=== PATIENT | female | born 1960 | race Caucasian/White ===

== ENCOUNTER 2016-06-25 05:01 | Emergency (ER) | payer OTHER ==
[2016-06-25] MEDS ORDERED: KETOROLAC 30 MG/ML 1 ML VIAL IVP STA ×2 (05:31→06:56)
[2016-06-25] MEDS ORDERED: SODIUM CHLORIDE 0.9% 1,000 ML IV STA (05:31)
[2016-06-25] MEDS ORDERED: HYDROmorphone 1 MG/ML 1 ML SYRINGE IVP STA (05:31)
[2016-06-25] MEDS ORDERED: LORazepam 2 MG/ML SYRINGE IV STA (05:31)
--- NOTE | 2016-06-25 05:37 | ED ---
General Adult HPI - General Chief complaint: Extremity Injury, Upper Stated complaint: right shoulder pain, numbness Time Seen by Provider: 06/25/16 05:20 Source: patient, family, RN notes reviewed Mode of arrival: ambulatory Limitations: no limitations - History of Present Illness Initial comments: This is a 56-year-old female who presents with complaints of right upper extremity pain and back pain. She states she's had this pain for about a month she's been going through physical therapy and did in fact have a session yesterday. She complains of severe 10/10 pain between her right shoulder blade and back when down her right arm. She states her hurts to move her right arm. She denies any new injury other than perhaps the physical therapy. She does take tramadol this is not helped the pain. - Related Data Home Medications Medication Instructions Recorded Confirmed Lisinopril [Prinivil] 10 mg PO DAILY 06/25/16 06/25/16 Previous Rx's Medication Instructions Recorded Ibuprofen [Motrin] 800 mg PO Q6HR PRN #20 tab 06/25/16 Orphenadrine [Norflex] 100 mg PO Q12H #7 tablet.er 06/25/16 Allergies Allergy/AdvReac Type Severity Reaction Status Date / Time No Known Allergies Allergy Verified 06/25/16 05:12 Review of Systems ROS Statement: Those systems with pertinent positive or pertinent negative responses have been documented in the HPI. ROS Other: All systems not noted in ROS Statement are negative. Past Medical History Past Medical History: Hypertension History of Any Multi-Drug Resistant Organisms: None Reported Past Surgical History: Cholecystectomy Additional Past Surgical History / Comment(s): colonoscopy Past Psychological History: No Psychological Hx Reported Smoking Status: Former smoker Past Alcohol Use History: None Reported Past Drug Use History: None Reported General Exam - General Exam Comments Initial Comments: This is a well-developed well-nourished awake alert oriented history female she is tearful Limitations: no limitations General appearance: alert, anxious, in distress Head exam: Present: atraumatic, normocephalic, normal inspection Eye exam: Present: normal appearance, PERRL, EOMI. Absent: scleral icterus, conjunctival injection, periorbital swelling ENT exam: Present: normal exam, mucous membranes moist Neck exam: Present: normal inspection, tenderness, other (Patient does have continues he ALLERGY tape on her right trapezius and right lateral neck. There is tenderness over the right trapezius and neck musculature no spinous process tenderness however. Is no tenderness to the right thoracic musculature no spinous process tenderness.). Absent: full ROM Respiratory exam: Present: normal lung sounds bilaterally. Absent: respiratory distress, wheezes, rales, rhonchi, stridor Cardiovascular Exam: Present: regular rate, normal rhythm, normal heart sounds. Absent: systolic murmur, diastolic murmur, rubs, gallop, clicks Extremities exam: Present: normal capillary refill, other (The right upper extremity is held in adduction. No tenderness palpation of the right shoulder arm elbow forearm or hand radial pulse is 2+. 3 and is somewhat cool to touch is somewhat dusky. This is likely due to the position she has been holding it in.) Back exam: Present: normal inspection, tenderness (Penicillin the paraspinous muscles on the right right trapezius muscle. No spinous process tenderness) Neurological exam: Present: alert, oriented X3 Skin exam: Present: dry Course Vital Signs 06/25/16 05:08 Temperature 97.6 F Pulse Rate 92 Respiratory 20 Rate Blood Pressure 162/71 O2 Sat by Pulse 100 Oximetry Medical Decision Making - Medical Decision Making The patient is so much improved this time I did a long discussion with her and her regarding the findings. The presentation consistent with cervical radiculopathy and muscle spasm. She also was dehydrated I did recommend increasing oral fluids. She is a followed back up with her orthopedist and return when necessary - Lab Data Result diagrams: 06/25/16 05:50 Lab Results 06/25/16 Range/Units 05:50 Sodium 144 (137-145) mmol/L Potassium 4.3 (3.5-5.1) mmol/L Chloride 105 (98-107) mmol/L Carbon Dioxide 26 (22-30) mmol/L Anion Gap 13 mmol/L BUN 30 H (7-17) mg/dL Creatinine 0.80 (0.52-1.04) mg/dL Est GFR (MDRD) Af Amer >60 (>60 ml/min/1.73 sqM) Est GFR (MDRD) Non-Af >60 (>60 ml/min/1.73 sqM) Glucose 111 H (74-99) mg/dL Calcium 10.3 H (8.4-10.2) mg/dL Magnesium 2.1 (1.6-2.3) mg/dL Total Bilirubin 0.7 (0.2-1.3) mg/dL AST 25 (14-36) U/L ALT 39 (9-52) U/L Alkaline Phosphatase 113 (38-126) U/L Total Protein 8.6 H (6.3-8.2) g/dL Albumin 4.8 (3.5-5.0) g/dL Disposition Clinical Impression: Cervical radiculopathy, Dehydration Disposition: HOME SELF-CARE Condition: Good Instructions: Cervical Radiculopathy (ED), Neck Pain (ED), Dehydration (ED) Prescriptions: Ibuprofen [Motrin] 800 mg PO Q6HR PRN #20 tab PRN Reason: Pain Orphenadrine [Norflex] 100 mg PO Q12H #7 tablet.er
[2016-06-25 06:11] LABS: ALT 39 U/L (9-52); AST 25 U/L (14-36); Alkaline Phosphatase 113 U/L (38-126); Anion Gap 13 mmol/L; Blood Urea Nitrogen 30 mg/dL (7-17); Calcium 10.3 mg/dL (8.4-10.2); Carbon Dioxide 26 mmol/L (22-30); Chloride 105 mmol/L (98-107); Glucose 111 mg/dL (74-99); Magnesium 2.1 mg/dL (1.6-2.3); Non-African American GFR(MDRD) >60 (>60 ml/min/1.73 sqM); Potassium 4.3 mmol/L (3.5-5.1); Sodium 144 mmol/L (137-145); Total Bilirubin 0.7 mg/dL (0.2-1.3); Total Protein 8.6 g/dL (6.3-8.2)
[2016-06-25 07:41] VITALS: BP 115/62; PULSE 64; RESP 14; TEMP 97.2
== END 2016-06-25 07:49 | disposition home or self-care (01) ==
LOC: EC 05:01
DX: M54.12 Radiculopathy, cervical region (principal); E86.0 Dehydration; M62.838 Other muscle spasm; I10 Essential (primary) hypertension; Z79.899 Other long term (current) drug therapy; Z87.891 Personal history of nicotine dependence
CPT/HCPCS: 36415; 80053; 83735; 99283; 96374; 96375 ×2; 96376; 96361 ×2; J2060; J1885; J1170

== ENCOUNTER → 2017-05-11 | Outpatient (CLI) | payer OTHER ==
--- NOTE | 2017-05-13 08:28 | MM ---
Reason for exam: screening (asymptomatic). Last mammogram was performed 1 year and 1 month ago. History: Patient is postmenopausal and has history of other cancer at age 51. Physical Findings: A clinical breast exam by your physician is recommended on an annual basis and results should be correlated with mammographic findings. MG 3D Screening Mammo W/Cad Bilateral CC and MLO view(s) were taken. Prior study comparison: April 23, 2016, bilateral MG 3d screening mammo w/cad. April 22, 2015, bilateral MG 3d screening mammo w/cad. April 15, 2014, bilateral MG screening mammo w CAD. There are scattered fibroglandular densities. Stable focal asymmetries on the right breast. ASSESSMENT: Negative, BI-RAD 1 RECOMMENDATION: Routine screening mammogram of both breasts in 1 year.
== END | disposition home or self-care (01) ==
LOC: RADMAMWWP 16:37
PROVIDERS: ATTEND Family Medicine
DX: Z12.31 Encounter for screening mammogram for malignant neoplasm of breast (principal)
CPT/HCPCS: 77063; 77067

== ENCOUNTER → 2018-05-27 | Outpatient (CLI) | payer OTHER ==
[2018-05-27 08:59] LABS: HCT 39.5 % (34.0-46.0); HGB 12.3 gm/dL (11.4-16.0); MCH 28.8 pg (25.0-35.0); MCHC 31.1 g/dL (31.0-37.0); MCV 92.7 fL (80.0-100.0); Mean Platelet Volume 7.9; Platelet Count 256 k/uL (150-450); RBC 4.26 m/uL (3.80-5.40); RDW 13.5 % (11.5-15.5); WBC 8.4 k/uL (3.8-10.6)
[2018-05-27 09:15] LABS: Amorphous Sediment,Urine Rare /hpf; Appearance,Urine Cloudy (Clear); Bacteria,Urine Rare /hpf; Bilirubin,Urine Negative (Negative); Blood,Urine Negative (Negative); Color,Urine Yellow; Glucose,Urine (UA) Negative (Negative); Ketones,Urine Negative (Negative); Leukocyte Esterase,Urine Negative (Negative); Mucus,Urine Rare /hpf; Nitrite,Urine Negative (Negative); Protein,Urine Negative (Negative); RBC,Urine <1 /hpf (0-5); Specific Gravity,Urine 1.021 (1.001-1.035); Squamous Epithelial Cell,Urine 3 /hpf (0-4); Urobilinogen,Urine <2.0 mg/dL (<2.0); WBC,Urine 2 /hpf (0-5)
[2018-05-27 16:28] LABS: Albumin 4.1 g/dL (3.80-4.90); Albumin/Globulin Ratio 1.71 (1.60-3.17); Anion Gap 8.8 mmol/L (4.00-12.00); Carbon Dioxide 29.2 mmol/L (21.6-31.8); Globulin 2.4 g/dL (1.6-3.3); LDL Cholesterol,Calculated 137.2 mg/dL (0.0-131.0); Potassium 4.5 mmol/L (3.5-5.5); Total Bilirubin 0.4 mg/dL (0.2-1.2); Total Protein 6.5 g/dL (6.2-8.2); VLDL Calculation 18.8 mg/dL (5.00-40.00)
[2018-05-27 17:09] LABS: T4, Free (Free Thyroxine) 0.9 ng/dL (0.80-1.80)
[2018-05-27 18:39] LABS: Hemoglobin A1C 5.5 % (4.0-6.0)
== END | disposition home or self-care (01) ==
LOC: LABWHC1 08:33
PROVIDERS: ATTEND Family Medicine
DX: Z00.00 Encounter for general adult medical examination without abnormal findings (principal); I10 Essential (primary) hypertension; E78.5 Hyperlipidemia, unspecified; E73.9 Lactose intolerance, unspecified
CPT/HCPCS: 36415; 80053; 80061; 81001; 83036; 84439; 84443; 85027

== ENCOUNTER → 2018-05-31 | Outpatient (CLI) | payer OTHER ==
--- NOTE | 2018-06-01 01:01 | MR ---
EXAMINATION TYPE: MR knee RT wo con DATE OF EXAM: 05/31/2018 COMPARISON: None HISTORY: Rt knee pain, internal derangement, fall TECHNIQUE: Multiplanar, multisequence imaging of the right knee is performed without IV contrast. FINDINGS: The anterior and posterior cruciate ligaments are intact. There is small knee joint effusion. The med ial meniscus is intact. Lateral meniscus is intact. I see no bony destructive process. There is no ev idence of a fracture. The collateral ligaments are intact. There is no evidence of bony destructive p rocess. IMPRESSION: Mild knee joint effusion. No evidence of ligamentous or meniscal tear. Minimal subcutaneous edema over the anterior knee.
== END | disposition home or self-care (01) ==
LOC: RADMRIMAIN 18:38
PROVIDERS: ATTEND Family Medicine
DX: M25.461 Effusion, right knee (principal); R60.0 Localized edema

== ENCOUNTER → 2018-06-22 | Outpatient (CLI) | payer OTHER ==
--- NOTE | 2018-06-23 10:44 | BD ---
EXAMINATION TYPE: Axial Bone Density DATE OF EXAM: 06/22/2018 COMPARISON: NONE CLINICAL HISTORY: 58 YR OLD FEMALE.....ICD-10 CODE: N95.1 POST MENOPAUSAL Height: 63.4 Weight: 217 FRAX RISK QUESTIONS: NOTHING TO NOTE HERE RISK FACTORS HISTORY OF: Active: YES Postmenopausal woman: YES AT AGE 54 YRS MEDICATIONS: Additional Medications: BP MEDS, VIT D, MULTIVITAMIN Additional History: HYPERTENSION EXAM MEASUREMENTS: Bone mineral densitometry was performed using the [employer] System. Bone mineral density as measured about the Lumbar spine is: ----- L1-L4(G/cm2): 1.394 T Score Values are as follows: ----- L1: 1.2 ----- L2: 1.9 ----- L3: 2.5 ----- L4: 1.6 ----- L1-L4: 1.8 Bone mineral density FIRST BONE DENSITY SCAN.....BASELINE STUDY Bone mineral density about the R hip (g/cm2): 1.027 Bone mineral density about the L hip (g/cm2): 1.199 T Score values are as follows: -----R Neck: -0.9 -----L Neck: 0.2 -----R Total: 0.2 -----L Total: 1.5 Bone mineral density BASELINE STUDY FRAX%s: THERE IS A 6.2% CHANCE FOR A MAJOR OSTEOPOROTIC FX AND A 0.3% FOR HIP FX....PROBABILITY OF FX IN 10 YRS TIME IMPRESSION: Normal (Values between +1 and -1 indicate normal bone mass). Consider repeating this study in 5 year s or sooner if there is some new clinical indication. NOTE: T-SCORE=SD OF THE YOUNG ADULT MEAN.
--- NOTE | 2018-06-26 08:16 | MM ---
Reason for exam: screening (asymptomatic). Last mammogram was performed 1 year and 1 month ago. History: Patient is postmenopausal and has history of other cancer at age 51. Physical Findings: A clinical breast exam by your physician is recommended on an annual basis and results should be correlated with mammographic findings. MG 3D Screening Mammo W/Cad Bilateral CC and MLO view(s) were taken. Prior study comparison: May 11, 2017, bilateral MG 3d screening mammo w/cad. April 23, 2016, bilateral MG 3d screening mammo w/cad. There are scattered fibroglandular densities. No significant changes when compared with prior studies. ASSESSMENT: Benign, BI-RAD 2 RECOMMENDATION: Routine screening mammogram of both breasts in 1 year.
== END ==
LOC: RADMAMWWP 13:46
PROVIDERS: ATTEND Family Medicine
DX: Z12.31 Encounter for screening mammogram for malignant neoplasm of breast (principal); N95.1 Menopausal and female climacteric states
CPT/HCPCS: 77063; 77067; 77080

== ENCOUNTER → 2018-08-08 | Outpatient (CLI) | payer OTHER ==
--- NOTE | 2018-08-09 07:44 | US ---
EXAMINATION TYPE: US venous doppler duplex LE RT DATE OF EXAM: 08/08/2018 4:59 PM COMPARISON: NONE CLINICAL HISTORY: I80.9Phlebitis and thrombophlebitis of unspecified. edema SIDE PERFORMED: Right TECHNIQUE: The lower extremity deep venous system is examined utilizing real time linear array sonog santiago with graded compression, doppler sonography and color-flow sonography. VESSELS IMAGED: External Iliac Vein (EIV) Common Femoral Vein Deep Femoral Vein Greater Saphenous Vein * Femoral Vein Popliteal Vein Small Saphenous Vein * Proximal Calf Veins (* superficial vessels) Right Leg: Negative for DVT Grayscale, color doppler, spectral doppler imaging performed of the deep veins of the right lower ext remity. There is normal flow, compressibility, vascular waveforms. IMPRESSION: No evidence for acute DVT in the right lower extremity.
== END ==
LOC: RADUSWWP 16:57
PROVIDERS: ATTEND Physical Medicine & Rehabilitation
DX: M54.5 Low back pain (principal); M79.661 Pain in right lower leg

== ENCOUNTER → 2019-11-01 | Outpatient (CLI) | payer BC ==
--- NOTE | 2019-11-02 09:57 | MM ---
Reason for exam: screening (asymptomatic). Last mammogram was performed 1 year and 4 months ago. History: Patient is postmenopausal and has history of other cancer at age 51. Physical Findings: A clinical breast exam by your physician is recommended on an annual basis and results should be correlated with mammographic findings. MG 3D Screening Mammo W/Cad Bilateral CC and MLO view(s) were taken. Prior study comparison: June 22, 2018, bilateral MG 3d screening mammo w/cad. May 11, 2017, bilateral MG 3d screening mammo w/cad. The breast tissue is heterogeneously dense. This may lower the sensitivity of mammography. Stable asymmetric density right upper outer quadrant unchanged from 2015. ASSESSMENT: Benign, BI-RAD 2 RECOMMENDATION: Routine screening mammogram of both breasts in 1 year.
== END | disposition home or self-care (01) ==
LOC: RADMAMWWP 15:19
PROVIDERS: ATTEND Family Medicine
DX: Z12.31 Encounter for screening mammogram for malignant neoplasm of breast (principal)
CPT/HCPCS: 77063; 77067

== ENCOUNTER → 2021-01-21 | Outpatient (CLI) | payer BC ==
--- NOTE | 2021-01-26 10:14 | MM ---
Reason for exam: screening (asymptomatic). Last mammogram was performed 1 year and 3 months ago. History: Patient is postmenopausal and has history of other cancer at age 51. Physical Findings: A clinical breast exam by your physician is recommended on an annual basis and results should be correlated with mammographic findings. MG 3D Screening Mammo W/Cad Bilateral CC and MLO view(s) were taken. Prior study comparison: November 01, 2019, bilateral MG 3d screening mammo w/cad. June 22, 2018, bilateral MG 3d screening mammo w/cad. May 11, 2017, bilateral MG 3d screening mammo w/cad. There are scattered fibroglandular densities. No significant changes when compared with prior studies. ASSESSMENT: Benign, BI-RAD 2 RECOMMENDATION: Routine screening mammogram of both breasts in 1 year.
== END | disposition home or self-care (01) ==
LOC: RADMAMWWP 15:56
PROVIDERS: ATTEND Family Medicine
DX: Z12.31 Encounter for screening mammogram for malignant neoplasm of breast (principal); Z78.0 Asymptomatic menopausal state
CPT/HCPCS: 77063; 77067

== ENCOUNTER → 2021-02-28 | Outpatient (CLI) | payer BC ==
[2021-02-28 09:22] LABS: Appearance,Urine Clear (Clear); Bilirubin,Urine Negative (Negative); Blood,Urine Negative (Negative); Color,Urine Yellow; Glucose,Urine (UA) Negative (Negative); Ketones,Urine Negative (Negative); Leukocyte Esterase,Urine Trace (Negative); Nitrite,Urine Negative (Negative); PH, Urine 5.5 (5.0-8.0); Protein,Urine Negative (Negative); RBC,Urine 1 /hpf (0-5); Specific Gravity,Urine 1.017 (1.001-1.035); Squamous Epithelial Cell,Urine 1 /hpf (0-4); Urobilinogen,Urine <2.0 mg/dL (<2.0); WBC,Urine 1 /hpf (0-5)
[2021-02-28 11:48] LABS: Basophils # (A) 0.04 X 10*3/uL (0.00-0.10); Basophils % (A) 0.5 %; Eosinophils # (A) 0.35 X 10*3/uL (0.04-0.35); Eosinophils % (A) 4.4 %; HCT 41.6 % (37.2-46.3); HGB 13.5 g/dL (12.0-15.0); Lymphocytes # (A) 2.13 X 10*3/uL (0.90-5.00); Lymphocytes % (A) 26.9 %; MCH 30.7 pg (27.0-32.0); MCHC 32.5 g/dL (32.0-37.0); MCV 94.5 fL (80.0-97.0); Mean Platelet Volume 10.2 fL (9.5-12.2); Monocytes % (A) 5.1 %; Neutrophils # (A) 4.97 X 10*3/uL (1.80-7.70); Neutrophils % (A) 62.7 %; Platelet Count 269 X 10*3/uL (140-440); RDW 13.1 % (11.5-14.5); WBC 7.92 X 10*3/uL (4.50-10.00)
[2021-02-28 13:40] LABS: African American GFR (CKD) 89.5 (60.0-200.0); Albumin 4.5 g/dL (3.8-4.9); Albumin/Globulin Ratio 1.71 (1.60-3.17); Anion Gap 12.4 mmol/L (4.00-12.00); BUN/Creat Ratio 15.85 Ratio (12.00-20.00); Calcium 9.8 mg/dL (8.7-10.3); Carbon Dioxide 26.1 mmol/L (21.6-31.8); Chol/HDL Ratio 4.92 Ratio; Globulin 2.6 g/dL (1.6-3.3); Non-African American GFR(CKD) 77.2 (60.0-200.0); Potassium 4.7 mmol/L (3.5-5.5); Total Bilirubin 0.3 mg/dL (0.30-1.20); Total Protein 7.1 g/dL (6.2-8.2)
== END | disposition home or self-care (01) ==
LOC: LABWHC1 08:22
PROVIDERS: ATTEND Family Medicine
DX: Z00.00 Encounter for general adult medical examination without abnormal findings (principal); E55.9 Vitamin D deficiency, unspecified; I10 Essential (primary) hypertension; R79.9 Abnormal finding of blood chemistry, unspecified; E78.5 Hyperlipidemia, unspecified
CPT/HCPCS: 36415; 80053; 80061; 81001; 82306; 83036; 84439; 84443; 85025

== ENCOUNTER → 2021-05-30 | Outpatient (CLI) | payer OTHER ==
--- NOTE | 2021-05-30 10:21 | XR ---
EXAMINATION TYPE: XR chest 2V DATE OF EXAM: 05/30/2021 COMPARISON: None. HISTORY: Shortness of breath and cough. TECHNIQUE: Frontal and lateral views of the chest are obtained. FINDINGS: There is no suspicious focal air space opacity, pleural effusion, or pneumothorax seen. T he cardiac silhouette size is within normal limits. Anterior fusion plate lower cervical spine is pre sent. IMPRESSION: No acute pulmonary process.
== END | disposition home or self-care (01) ==
LOC: RADXRMAIN 09:27
PROVIDERS: ATTEND Family Medicine
DX: R06.02 Shortness of breath (principal); R05.9 Cough, unspecified
CPT/HCPCS: 71046

== ENCOUNTER → 2022-01-22 | Outpatient (CLI) | payer BC ==
--- NOTE | 2022-01-25 08:47 | MM ---
Reason for Exam: Screening (asymptomatic). Last screening mammogram was performed 12 month(s) ago. Patient History: Menarche at age 12. First Full-Term at age 17. Postmenopausal. Other cancer, age 51. Risk Values: Jacqui 5 year model risk: 1.1%. NCI Lifetime model risk: 5.0%. Prior Study Comparison: 06/22/2018 Bilateral Screening Mammogram, [facility]. 11/01/2019 Bilateral Screening Mammogram, [facility]. 01/21/2021 Bilateral Screening Mammogram, [facility]. Tissue Density: There are scattered fibroglandular densities. Findings: Analyzed By CAD. There are benign-appearing bilateral axillary lymph nodes redemonstrated. There is no suspicious group of microcalcifications or new suspicious mass in either breast. Overall Assessment: Negative, BI-RAD 1 Management: Screening Mammogram of both breasts in 1 year. A clinical breast exam by your physician is recommended on an annual basis and results should be correlated with mammographic findings. Electronically signed and approved by: Clifton Webb M.D.
== END | disposition home or self-care (01) ==
LOC: RADMAMWWP 16:03
PROVIDERS: ATTEND Family Medicine
DX: Z12.31 Encounter for screening mammogram for malignant neoplasm of breast (principal); Z78.0 Asymptomatic menopausal state
CPT/HCPCS: 77063; 77067

== ENCOUNTER → 2022-09-28 | Outpatient (CLI) | payer BC ==
--- NOTE | 2022-09-28 10:35 | CA ---
Transthoracic Echo Report Name: Karen Membreno Age: 62 Gender: F : 1960 Exam Date: 09/28/2022 08:01 Exam Location: [place] [facility] Ht (in): 64 Wt (lb): 195 Ordering Physician: Anton Mina DO Attending/Referring Phys: Deboner Radha Cano RDCS Procedure CPT: Indications: R01.1 Cardiac Hx: Technical Quality: Fair Contrast 1: Total Dose (mL): Contrast 2: Total Dose (mL): MEASUREMENTS (Male / Female) Normal Values 2D ECHO LV Diastolic Diameter PLAX 4.4 cm 4.2 - 5.9 / 3.9 - 5.3 cm LV Systolic Diameter PLAX 2.8 cm IVS Diastolic Thickness 1.3 cm 0.6 - 1.0 / 0.6 - 0.9 cm LVPW Diastolic Thickness 1.5 cm 0.6 - 1.0 / 0.6 - 0.9 cm LV Relative Wall Thickness 0.6 RV Internal Dim ED PLAX 2.8 cm LA Volume 31.5 cm??? 18 - 58 / 22 - 52 cm??? M-MODE Aortic Root Diameter MM 3.1 cm LA Systolic Diameter MM 2.8 cm LA Ao Ratio MM 0.9 AV Cusp Separation MM 2.0 cm DOPPLER AV Peak Velocity 118.3 cm/s AV Peak Gradient 5.6 mmHg AV Mean Velocity 90.6 cm/s AV Mean Gradient 3.4 mmHg AV Velocity Time Integral 24.1 cm LVOT Peak Velocity 105.3 cm/s LVOT Peak Gradient 4.4 mmHg LVOT Velocity Time Integral 21.4 cm MV Area PHT 4.0 cm??? Mitral E Point Velocity 84.7 cm/s Mitral A Point Velocity 113.0 cm/s Mitral E to A Ratio 0.7 MV Deceleration Time 187.6 ms MV E' Velocity 6.2 cm/s Mitral E to MV E' Ratio 13.7 TR Peak Velocity 201.6 cm/s TR Peak Gradient 16.3 mmHg Right Ventricular Systolic Press 21.3 mmHg FINDINGS Left Ventricle Mildly increased left ventricular wall thickness. Normal left ventricular systolic function with no obvious regional wall motion abnormalities. Left ventricular cavity size normal. Left ventricular ejection fraction is estimated at 55-60 %. Right Ventricle Normal right ventricular size and function. Right ventricular systolic pressure within normal limits. Right Atrium Normal right atrial size. Left Atrium Normal left atrial size. Mitral Valve Structurally normal mitral valve. Trace mitral regurgitation. Aortic Valve Trileaflet aortic valve. No aortic valve stenosis or regurgitation. Tricuspid Valve Structurally normal tricuspid valve. Mild tricuspid regurgitation. Pulmonic Valve Trace pulmonic regurgitation. Pericardium No pericardial effusion. Aorta Normal size aortic root and proximal ascending aorta. CONCLUSIONS Normal LV systolic function Previewed by: Dr. Enrique Chao MD (Electronically Signed) Final Date: 28 September 2022 10:35
--- NOTE | 2022-09-28 10:57 | CA ---
Exercise Stress Test Report Name: Karen Membreno Exam Date: 09/28/2022 08:34 Exam Location: [place] [facility] Ht (in): 65 Wt (lb): 195 BSA: 1.96 Ordering Phys: Anton Mina DO Referring Phys: MINA Technologist: Anton Fried Age: 62 Gender: F : 1960 Procedure CPT: Indications: R01.1 ICD-10 Codes: Patient History: Shortness of breath Medications: Meds past 24 hrs: Pretest Chest Pain: STRESS TEST Jonny Protocol Exercise Duration (min:sec): 06:[address] Depressions (mm): Angina Score: Davenport Score: Resting HR (bpm): 67 Peak HR (bpm): 152 Resting BP (mmHg): 109 / 72 Peak BP (mmHg): 202 / 93 MPHR: 157 Target HR: 133 % MPHR: 97 METS: 7.1 Total Dose: Peak Dose: Atropine: Double Product: 68231 BP Response: Stress Termination: Reached target heart rate Stress Symptoms: No chest pain or symptoms Stress Summary: ECG ANALYSIS Resting ECG: Stress ECG: CONCLUSIONS Excellent exercise tolerance Normal EKG in response to exercise Dr. Enrique Chao MD (Electronically Signed) Final Date: 28 September 2022 10:56
== END | disposition home or self-care (01) ==
LOC: RADECHMAIN 07:51
PROVIDERS: ATTEND Family Medicine
DX: R01.1 Cardiac murmur, unspecified (principal); R06.02 Shortness of breath
CPT/HCPCS: 93017; 93306

== ENCOUNTER → 2024-06-18 | Outpatient (CLI) | payer MEDICARE ==
--- NOTE | 2024-06-19 07:43 | MM ---
Reason for Exam: Screening (asymptomatic). Last mammogram was performed 1 year(s) and 4 month(s) ago. Patient History: Menarche at age 12. First Full-Term at age 17. Postmenopausal. Other cancer, age 51. Risk Values: Jacqui 5 year model risk: 1.2%. NCI Lifetime model risk: 4.6%. Prior Study Comparison: 01/21/2021 Bilateral Screening Mammogram, [facility]. 01/22/2022 Bilateral MG 3D screening mammo w/cad, [facility]. 02/03/2023 Bilateral MG 3D screening mammo w/cad, [facility]. Tissue Density: There are scattered areas of fibroglandular density. Findings: Analyzed By CAD. Right breast: There is no suspicious group of microcalcifications or new suspicious mass. Left breast: There is no suspicious group of microcalcifications or new suspicious mass. Overall Assessment: Negative, BI-RAD 1 Management: Screening Mammogram of both breasts in [address] [facility] will attempt to contact patient to return for supplemental views and ultrasound if indicated. Patient should continue monthly self-breast exams. A clinical breast exam by your physician is recommended on an annual basis. This exam should not preclude additional follow-up of suspicious palpable abnormalities. Note on Jacqui scores and lifetime risk: 1. A Jacqui score greater than 3% is considered moderate risk. If this is the case, consider specialist referral to assess eligibility for a risk reducing agent. 2. If overall lifetime risk for the development of breast cancer is 20% or higher, the patient may qualify for future screening with alternating mammogram and breast MRI. [facility], , 06/19/2024 7:40 AM. Electronically signed and approved by: Prem Monroy DO
== END | disposition home or self-care (01) ==
LOC: RADMAMWWP 15:49
PROVIDERS: ATTEND Family Medicine
DX: Z12.31 Encounter for screening mammogram for malignant neoplasm of breast (principal); R92.323 Mammographic fibroglandular density, bilateral breasts; Z78.0 Asymptomatic menopausal state
CPT/HCPCS: 77063; 77067